=== PATIENT | male | born 1990 | race Caucasian/White ===

== ENCOUNTER 2018-12-27 19:00 | Emergency (ER) | payer OTHER ==
[~2018-12-27] VITALS: Ht 172.7 cm; Wt 68.0 kg
[2018-12-27 19:17] VITALS: BP 121/84
--- NOTE | 2018-12-27 19:20 | NUR ---
ED Nurse Note: patient was briught by and JESENIA, for behavioral complain. Patient was standing on the edge of parking structure, trying to jump of. ADRIANNAD officer spoke with him and brought him back from the edge. AAO x4, but refusing any communicaion. [employer] by bed side.
--- NOTE | 2018-12-27 19:22 | Emergency Room Report ---
History of Present Illness General Chief Complaint: Behavioral Complaint Source: EMS, Law Enforcement Present Illness HPI Patient was brought in by police department and paramedics Patient was reported standing on a roof reporting that he was going to jump off the roof He was detained and brought to the emergency room Here the patient is nonverbal with me Will not respond to any questioning He does make eye contact however Unknown regarding past medical history Patient also not providing name or date of Allergies: Coded Allergies: UNABLE TO ASSESS (Unverified , 12/27/18) PT. IS NOT ANSWERING QUESTIONS Patient History Limited by: medical condition Past Medical History: see triage record Pertinent Family History: unable to obtain Reviewed Nursing Documentation: PMH: Agreed; PSxH: Agreed Nursing Documentation-PMH Past Medical History: No Stated History Review of Systems All Other Systems: limited - Other than the ones mentioned in the history of present illness all others are reviewed however they do stay limited due to the patient's mental status Physical Exam Vital Signs Date Time Temp Pulse Resp B/P (MAP) Pulse Ox O2 Delivery O2 Flow Rate FiO2 12/27/18 18:45 98.2 98 19 121/84 95 Room Air Sp02 EP Interpretation: reviewed, normal General Appearance: no apparent distress Head: normocephalic, atraumatic Eyes: bilateral eye PERRL, bilateral eye EOMI ENT: normal pharynx, no angioedema Neck: supple Respiratory: lungs clear, no retraction, no accessory muscle use Cardiovascular #1: regular rate, rhythm Gastrointestinal: non tender, soft Musculoskeletal: normal inspection Neurologic: responsive - To verbal stimuli Psychiatric: other - Flat affect Skin: normal color, no rash Lymphatic: no adenopathy Medical Decision Making Diagnostic Impression: Primary Impression: medically cleared Additional Impression: Acute psychosis ER Course Patient present by paramedics and police department on 5150 hold after extensive blood work Patient is also medically cleared Patient requires further psychiatric evaluation and inpatient care Labs Test 12/27/18 19:30 12/27/18 19:40 White Blood Count 7.5 K/UL (4.8-10.8) Red Blood Count 4.60 M/UL (4.70-6.10) Hemoglobin 14.8 G/DL (14.2-18.0) Hematocrit 42.8 % (42.0-52.0) Mean Corpuscular Volume 93 FL (80-99) Mean Corpuscular Hemoglobin 32.2 PG (27.0-31.0) Mean Corpuscular Hemoglobin Concent 34.6 G/DL (32.0-36.0) Red Cell Distribution Width 11.3 % (11.6-14.8) Platelet Count 232 K/UL (150-450) Mean Platelet Volume 7.4 FL (6.5-10.1) Neutrophils (%) (Auto) 70.2 % (45.0-75.0) Lymphocytes (%) (Auto) 13.8 % (20.0-45.0) Monocytes (%) (Auto) 12.7 % (1.0-10.0) Eosinophils (%) (Auto) 1.8 % (0.0-3.0) Basophils (%) (Auto) 1.4 % (0.0-2.0) Sodium Level 138 MMOL/L (136-145) Potassium Level 3.6 MMOL/L (3.5-5.1) Chloride Level 100 MMOL/L (98-107) Carbon Dioxide Level 27 MMOL/L (21-32) Anion Gap 11 mmol/L (5-15) Blood Urea Nitrogen 19 mg/dL (7-18) Creatinine 1.0 MG/DL (0.55-1.30) Estimat Glomerular Filtration Rate > 60 mL/min (>60) Glucose Level 92 MG/DL (74-106) Calcium Level 10.0 MG/DL (8.5-10.1) Total Bilirubin 0.8 MG/DL (0.2-1.0) Aspartate Amino Transf (AST/SGOT) 19 U/L (15-37) Alanine Aminotransferase (ALT/SGPT) 18 U/L (12-78) Alkaline Phosphatase 73 U/L (46-116) Total Protein 8.4 G/DL (6.4-8.2) Albumin 4.5 G/DL (3.4-5.0) Globulin 3.9 g/dL Albumin/Globulin Ratio 1.2 (1.0-2.7) Salicylates Level 0.6 ug/mL (2.8-20) Acetaminophen Level < 2 MCG/ML (10-30) Serum Alcohol < 3 mg/dL Urine Color Yellow Urine Appearance Clear Urine pH 6 (4.5-8.0) Urine Specific Walker 1.015 (1.005-1.035) Urine Protein Negative (NEGATIVE) Urine Glucose (UA) Negative (NEGATIVE) Urine Ketones 3+ (NEGATIVE) Urine Blood Negative (NEGATIVE) Urine Nitrite Negative (NEGATIVE) Urine Bilirubin Negative (NEGATIVE) Urine Urobilinogen 4 MG/DL (0.0-1.0) Urine Leukocyte Esterase Negative (NEGATIVE) Urine Opiates Screen Negative (NEGATIVE) Urine Barbiturates Screen Negative (NEGATIVE) Phencyclidine (PCP) Screen Negative (NEGATIVE) Urine Amphetamines Screen Negative (NEGATIVE) Urine Benzodiazepines Screen Negative (NEGATIVE) Urine Cocaine Screen Negative (NEGATIVE) Urine Marijuana (THC) Screen Negative (NEGATIVE) Last Vital Signs Date Time Temp Pulse Resp B/P (MAP) Pulse Ox O2 Delivery O2 Flow Rate FiO2 12/27/18 19:17 98.2 19 121/84 95 Room Air 12/27/18 19:17 98 Status: improved Disposition: XFER TO PSYCH HOSP/UNIT Condition: Improved Selina Reeves DO Dec 27, 2018 19:22
--- NOTE | 2018-12-27 19:35 | NUR ---
ED Nurse Note: patient placed on 5150 hold
[2018-12-27 19:48] LABS: BASOPHILS % (AUTO) 1.4 % (0.0-2.0); EOSINOPHILS % (AUTO) 1.8 % (0.0-3.0); HEMATOCRIT 42.8 % (42.0-52.0); HEMOGLOBIN 14.8 G/DL (14.2-18.0); LYMPHOCYTES % (AUTO) 13.8 % (20.0-45.0); MEAN CORPUSCULAR VOLUME 93 FL (80-99); MONOCYTES % (AUTO) 12.7 % (1.0-10.0); NEUTROPHILS % (AUTO) 70.2 % (45.0-75.0); PLATELET COUNT 232 K/UL (150-450); RED CELL DISTRIBUTION WIDTH 11.3 % (11.6-14.8); WHITE BLOOD COUNT 7.5 K/UL (4.8-10.8)
[2018-12-27 19:52] LABS: APPEARANCE,URINE CLEAR; BILIRUBIN, URINE NEGATIVE (NEGATIVE); GLUCOSE, URINE (UA) NEGATIVE (NEGATIVE); KETONES,URINE 3+ (NEGATIVE); LEUKOCYTE ESTERASE ,URINE NEGATIVE (NEGATIVE); NITRITE,URINE NEGATIVE (NEGATIVE); PH,URINE 6 (4.5-8.0); PROTEIN,URINE NEGATIVE (NEGATIVE); UROBILINOGEN,URINE 4 MG/DL (0.0-1.0)
[2018-12-27 19:54] LABS: COLOR,URINE YELLOW
[2018-12-27 20:08] LABS: ANION GAP 11 mmol/L (5-15); BLOOD UREA NITROGEN 19 mg/dL (7-18); CARBON DIOXIDE 27 MMOL/L (21-32); CHLORIDE 100 MMOL/L (98-107); POTASSIUM 3.6 MMOL/L (3.5-5.1); SODIUM 138 MMOL/L (136-145)
--- NOTE | 2018-12-27 20:10 | NUR ---
ED Nurse Note: patient's belonging placed in locker 3
[2018-12-27 20:13] LABS: ALANINE AMINOTRANSFERASE 18 U/L (12-78); ALBUMIN 4.5 G/DL (3.4-5.0); ALBUMIN/GLOBULIN RATIO 1.2 (1.0-2.7); ALKALINE PHOSPHATASE 73 U/L (46-116); ASPARTATE AMINO TRANSFERASE 19 U/L (15-37); BILIRUBIN,TOTAL 0.8 MG/DL (0.2-1.0)
[2018-12-27 20:49] VITALS: BP 125/80
--- NOTE | 2018-12-27 21:02 | NUR ---
No sitter available at this time(per household cook)
--- NOTE | 2018-12-27 21:23 | NUR ---
ED Nurse Note: patient is in the bed, no acute disstress noticed. VSS at this time.
[2018-12-28 01:35] VITALS: BP 130/75
--- NOTE | 2018-12-28 01:35 | NUR ---
ED Nurse Note: patient still in the bed, sleeping, no s/s of disstress. VSS at this time.
[2018-12-28 03:20] VITALS: BP 130/75
[2018-12-28 05:15] VITALS: BP 130/75
--- NOTE | 2018-12-28 06:30 | NUR ---
ED Nurse Note: patient in the bed sleeping, no s/s of acute disstress. VSS at this time.
--- NOTE | 2018-12-28 07:30 | NUR ---
[facility]
--- NOTE | 2018-12-28 07:36 | NUR ---
ED Nurse Note:pt. is sleeping no signs of distress noted, will continue to monitor
--- NOTE | 2018-12-28 09:08 | NUR ---
called elisabeth spoke to ellen . instructed to call back by 10 am he is reviewing the chart now
[2018-12-28 09:39] VITALS: BP 125/70
[2018-12-28 11:44] VITALS: BP 115/72
--- NOTE | 2018-12-28 11:49 | NUR ---
ED Nurse Note:pt. was picked up ambulance for transfer to psych hosp, VSS, report given to [place]
== END 2018-12-28 11:45 ==
LOC: EDBD 19:00 → EMR 20:30
DX: F23 Brief psychotic disorder (principal)
CPT/HCPCS: 36415; 80053; 80307; 80329; 81003; 85025; 96360; 99284